=== PATIENT | female | born 1930 | race Caucasian/White ===

== ENCOUNTER 2017-06-15 18:31 | Emergency (ER) | payer MEDICARE, BC ==
--- NOTE | 2017-06-15 20:20 | RAD ---
CHEST TWO VIEW 06/15/17 HISTORY: Cough. COMPARISON: Chest radiograph 10/14/16. FINDINGS: The lungs are hypoinflated with vascular crowding. Spurious enlargement of the cardiac silhouette. De nse vascular calcifications in the aorta. No acute osseous abnormality. Rotator cuff arthropathy on t he right. IMPRESSION: No acute intrathoracic abnormality or significant change. POS: [facility]
== END 2017-06-15 19:45 | disposition home or self-care (01) ==
LOC: SCSER 18:31
DX: J06.9 Acute upper respiratory infection, unspecified (principal); I10 Essential (primary) hypertension; F32.9 Major depressive disorder, single episode, unspecified; Z85.820 Personal history of malignant melanoma of skin; Z79.899 Other long term (current) drug therapy
CPT/HCPCS: 71046